=== PATIENT | male | born 1950 | race Caucasian/White ===

== ENCOUNTER → 2017-12-14 | Outpatient (CLI) | payer MEDICARE, BC ==
[2017-12-14 16:34] LABS: ALT 107 U/L (21-72); AST 103 U/L (17-59)
[2017-12-15 03:50] LABS: Hemoglobin A1C 5.5 % (4.0-6.0)
== END ==
LOC: LABPAT 15:14
PROVIDERS: ATTEND Orthopaedic Surgery
DX: Z01.818 Encounter for other preprocedural examination (principal); Z01.812 Encounter for preprocedural laboratory examination; M16.12 Unilateral primary osteoarthritis, left hip; E11.9 Type 2 diabetes mellitus without complications; R74.8 Abnormal levels of other serum enzymes
CPT/HCPCS: 36415; 83036; 84450; 84460; 86850; 86900; 86901; 87070

== ENCOUNTER → 2017-12-19 | Outpatient (CLI) | payer MEDICARE, BC ==
[2017-12-19 13:32] LABS: INR 1.2 (<1.2); Prothrombin Time 11.8 sec (9.0-12.0)
[2017-12-19 14:08] LABS: Basophils % (A) 1 %; Eosinophils # (A) 0.3 k/uL (0-0.7); Eosinophils % (A) 5 %; HCT 45.1 % (39.0-53.0); HGB 15.3 gm/dL (13.0-17.5); Lymphocytes # (A) 1.7 k/uL (1.0-4.8); Lymphocytes % (A) 28 %; MCH 32.5 pg (25.0-35.0); MCV 95.8 fL (80.0-100.0); Mean Platelet Volume 6.9; Monocytes # (A) 0.4 k/uL (0-1.0); Monocytes % (A) 7 %; Neutrophils # (A) 3.6 k/uL (1.3-7.7); Neutrophils % (A) 59 %; Platelet Count 224 k/uL (150-450); RBC 4.71 m/uL (4.30-5.90); RDW 12.6 % (11.5-15.5); WBC 6.1 k/uL (3.8-10.6)
== END | disposition home or self-care (01) ==
LOC: LABPAT 12:40
PROVIDERS: ATTEND Orthopaedic Surgery
DX: Z01.812 Encounter for preprocedural laboratory examination (principal); Z79.01 Long term (current) use of anticoagulants; Z79.899 Other long term (current) drug therapy
CPT/HCPCS: 36415; 80051; 85025; 85610

== ENCOUNTER 2017-12-25 05:42 | Inpatient (IN) | payer MEDICARE, BC ==
[2017-12-13 11:41] VITALS: BMI 32.7
--- NOTE | 2017-12-24 18:38 | HP ---
HISTORY AND PHYSICAL REASON FOR ADMISSION: Surgery scheduled 12/25/17 67-year-old patient seen with progressive left hip pain consistent with symptomatic osteoarthritis. After treatment options were discussed with him, he elected to proceed with left total hip arthroplasty. Consent regarding the procedure was obtained. Medical clearance was provided by Dr. Gilbert Dominguez. PAST MEDICAL HISTORY: Hypertension, oez-vkpifqh-thretfznb diabetes, hyperlipidemia. PAST SURGICAL HISTORY: Lumbar spine decompression. MEDICATIONS ARE: Lisinopril/hydrochlorothiazide, metformin, metoprolol. ALLERGIES: None reported. SOCIAL HISTORY: The patient denies current tobacco use. PHYSICAL EXAMINATION: Evaluation of the left hip there is a limited range of motion with significant pain. Positive hip impingement sign. Straight leg raise is negative. Distal neurovascular exam is intact. RADIOGRAPHS: Radiographs of the left hip revealed moderate/severe osteoarthritic changes. IMPRESSION: 1. Left hip osteoarthritis. 2. Hypertension. 3. Rfo-guvcxfe-smrcplsra diabetes. 4. Hyperlipidemia. PLAN: Direct anterior left total hip arthroplasty. Surgery 12/25/2017. MMODL / IJN: [id number] /
[~2017-12-25 05:42] MED LIST: ceFAZolin IN SWFI 2 GM/20 ML SYRINGE IVP ONE
[2017-12-25] MEDS ORDERED: LIDOCAINE 1% 20 ML VIAL (10MG/ML) FOR IV START INTRADERMA PRN (06:07)
[2017-12-25] MEDS ORDERED: ONDANSETRON 4 MG/2 ML VIAL IVP ONE ×2 (06:07→10:06)
[2017-12-25] MEDS: LACTATED RINGERS 1,000 ML IV SCH ×3 (06:43→22:26)
[2017-12-25] MEDS ORDERED: DEXAMETHASONE SOD PHOS (MDV) 100 MG/10 ML VIAL IVP ONE (06:44)
[2017-12-25 06:54] LABS: Glucose,Whole Blood 124 mg/dL (75-99)
[2017-12-25] MEDS ORDERED: ROPIVACAINE 246.25 MG, EPINEPHrine 0.5 MG, KETOROLAC 30 MG, cloNIDine HCL/PF 80 MCG, WA... MISCELLANE ONE ×5 (07:29)
[2017-12-25] MEDS ORDERED: TRANEXAMIC ACID 1,000 MG in SODIUM CHLORIDE 0.9% 50 ML IVPB ONE (07:42)
[2017-12-25] MEDS ORDERED: ceFAZolin 3,000 MG in SODIUM CHLORIDE 0.9% IRRIGATIO 3,000 ML IRRIGATION ONE (08:16)
[2017-12-25] MEDS: TRANEXAMIC ACID 1,000 MG in SODIUM CHLORIDE 0.9% 50 ML IVPB ONE ×2 (08:16→08:40)
[2017-12-25] MEDS ORDERED: LACTATED RINGERS 1,000 ML IV ONE (08:37)
[2017-12-25] MEDS ORDERED: HYDROcodone/APAP 7.5-325MG 1 EACH TAB PO PRN ×2 (09:17)
[2017-12-25] MEDS ORDERED: ONDANSETRON 4 MG/2 ML VIAL IVP PRN (09:17)
[2017-12-25] MEDS ORDERED: HYDROmorphone 1 MG/ML 1 ML SYRINGE IVP PRN ×3 (09:17)
[2017-12-25] MEDS ORDERED: hydrOXYzine PAMOATE 25 MG CAP PO PRN (09:17)
[2017-12-25] MEDS ORDERED: NALOXONE 0.4 MG/ML 1 ML VIAL IV PRN (09:17)
--- NOTE | 2017-12-25 09:17 | P.OP ---
Date of Procedure: 12/25/17 Preoperative Diagnosis: Left hip osteoarthritis Postoperative Diagnosis: Left hip osteoarthritis Procedure(s) Performed: Direct anterior left total hip arthroplasty Implants: 1. Depuy Corail size 14 standard collar press-fit femoral stem 2. Depuy pinnacle 64 mm press-fit acetabular shell 3. Depuy pinnacle polyethylene acetabular liner 36 mm ID 64 mm OD 4. Biolox delta ceramic femoral head +5 36 mm Anesthesia: RIVERAA, local Surgeon: Gene Mathur Hairspring Inspector #1: Frandy Rodrigues Estimated Blood Loss (ml): 1,500 Pathology: other (Femoral head) Condition: stable Disposition: PACU Indications for Procedure: 67-year-old patient seen with symptomatic left hip osteoarthritis. After having treatment options discussed, he elected to proceed with total hip arthroplasty. Operative Findings: see description of procedure Description of Procedure: The patient was taken to the operative suite. Patient underwent a general anesthetic by the department of anesthesia. Patient was then transferred to the [place] table. Patient was given preoperative IV antibiotics and TXA. Both lower extremities were placed in standard leg spars. The hip was then prepped and draped in the normal sterile orthopedic fashion. A standard anterior incision was made beginning 3 cm lateral and 1 cm distal to the ASIS extending 10 cm. Dissection was then carried down through the subcutaneous soft tissues down to the fascia overlying the tensor fascia ernestina. An incision was now made through the fascia. Careful dissection was taken down exposing the tensor fascia ernestina muscle. A Cobra retractor was now placed along the medial femoral neck and a second one along the lateral femoral neck. The venous circumflex vessels were now identified, cauterized and clipped. We identified the anterior hip capsule. An incision was made through the hip capsule along the lateral border. I performed a partial anterior capsulectomy. Retractors were now placed around the femoral neck itself. A femoral neck cut was now made with a sagittal saw. It was completed with an osteotome at the lateral neck area. The femoral head was now removed without difficulty. The extremity was now rotated to 45 of external rotation. It was locked in position. Residual labrum was now debrided out. Serial reaming was performed of the acetabulum while Quique BUSTILLOS assisted holding an anterior retractor for exposure. Once we reached the appropriate size and a trial was position and fit nicely. The appropriate size was now chosen opened and made available. It was introduced into the acetabulum without difficulty. The C-arm/fluoroscopy was now brought into the operative field. We made sure we had a true AP pelvic view. We now under direct C-arm/fluoroscopy introduced into the acetabular component with appropriate version and inclination. I held the cup in appropriate position well Quique BUSTILLOS used a mallet to seat the acetabular component. I noted the component now to be well seated and stable. Acetabular cup introduce her was removed. The C-arm was pulled back. An appropriate liner was introduced and clicked into position. It was felt to be stable. At this point retractors were removed. The extremity was now placed into 120 external rotation with no traction. The leg was now dropped to the ground and adducted. Appropriate retractors were now positioned along the proximal femur. We also placed our femoral look into position. Additional capsular releasing was performed to gain access to the proximal femur. We now used a box osteotome. A canal finder was now utilized. Serial broaching was now performed with the assistance of Quique BUSTILLOS tapping the broaches down with a mallet while held the broach in appropriate rotation and position. This was done until we reached the appropriate size with good overall rotational stability. Appropriate calcar planing was performed. A trial head/neck was placed into position. The hip was now reduced. The C-arm/fluoroscopy was brought back into the operative field. A spot film was obtained of the nonoperative hip. A spot film was obtained of the trial components. Overlays were performed, we noted good overall alignment and positioning for determining leg length. The C- arm/fluoroscopy was pulled back. Retractors were repositioned and the hip was dislocated. The leg was again taken down to the ground and adducted. Appropriate retractors were repositioned as well as the femoral hook. All trial components were removed. The femoral implant was opened along with the femoral head. The femoral implant was introduced on the appropriate handle into our pre-broached area. I held the component position well Quique BUSTILLOS used a mallet to seat the femoral component. The femoral component was now noted to be well seated and stable.. The femoral head was introduced with good positioning and fixation noted. Retractors were now removed. The hip was now reduced. There appeared be good positioning of the hip confirmed on intraoperative fluoroscopy. Spot films were obtained to document this. A second gram of TXA was given. The deep and superficial soft tissues were infiltrated with local analgesic. Bipolar cautery had been utilized intermittently through the procedure for hemostasis. The wound was irrigated copiously with pulse lavage mechanical irrigation. The fascia was repaired with Vicryl suture. The subcutaneous soft tissues were repaired in layers with Vicryl suture. The skin was approximated with pernio/Dermabond. Sterile dressings were applied. Patient was then awakened, transferred to a bed and taken to recovery in stable condition. Quique BUSTILLOS assisted with the complex procedure.
[2017-12-25] MEDS: HYDROmorphone 0.5 MG/0.5 ML SYRINGE IVP PRN ×2 (09:51→10:13)
--- NOTE | 2017-12-25 10:24 | FL ---
Fluoroscopy HISTORY: Hip replacement 9 seconds fluoroscopy time supplied to the referring clinician. 1 intraoperative C-arm images docume nt the procedure. See dictated report from orthopedic surgery.
--- NOTE | 2017-12-25 10:25 | XR ---
Limited left hip HISTORY: Hip replacement Single intraoperative C-arm image documents the procedure.
[2017-12-25] MEDS ORDERED: INSULIN ASPART 100 UNIT/ML 1 ML 10 ML VIAL SQ ONE (11:54)
[2017-12-25 12:00] LABS: Glucose,Whole Blood 234 mg/dL (75-99)
[2017-12-25] MEDS: ceFAZolin IN SWFI 2 GM/20 ML SYRINGE IVP SCH ×2 (18:03→23:28)
[2017-12-25] MEDS: traMADol 50 MG TAB PO SCH ×2 (18:03→22:24)
[2017-12-25 20:25] LABS: Glucose,Whole Blood 216 mg/dL (75-99)
[2017-12-25] MEDS: metFORMIN 500 MG TAB PO SCH (22:24)
[2017-12-25] MEDS: INSULIN ASPART 100 UNIT/ML 1 ML 10 ML VIAL SQ SCH (22:25)
[2017-12-25] MEDS: SENNOSIDES-DOCUSATE SODIUM 1 EACH TAB PO SCH (22:25)
[2017-12-26] MEDS: LACTATED RINGERS 1,000 ML IV SCH ×2 (05:37→05:39)
[2017-12-26 07:25] LABS: Glucose,Whole Blood 163 mg/dL (75-99)
[2017-12-26] MEDS: INSULIN ASPART 100 UNIT/ML 1 ML 10 ML VIAL SQ SCH ×4 (07:43→22:20)
[2017-12-26] MEDS: traMADol 50 MG TAB PO SCH ×5 (07:53→22:28)
[2017-12-26] MEDS: ENOXAPARIN 40 MG/0.4 ML SYRINGE SQ SCH (07:53)
[2017-12-26] MEDS: METOPROLOL TARTRATE 25 MG TAB PO SCH (07:53)
[2017-12-26] MEDS: MELOXICAM 7.5 MG TAB PO SCH (07:53)
[2017-12-26] MEDS: MULTIVITAMINS, THERA 1 EACH TAB PO SCH (07:54)
[2017-12-26] MEDS: FAMOTIDINE 20 MG TAB PO SCH (07:54)
[2017-12-26] MEDS: metFORMIN 500 MG TAB PO SCH ×2 (07:54→22:20)
[2017-12-26] MEDS: LISINOPRIL-HCTZ 20-12.5 MG 1 EACH TAB PO SCH (07:57)
[2017-12-26 08:02] LABS: Basophils % (A) 0 %; Eosinophils % (A) 0 %; HCT 31.4 % (39.0-53.0); Lymphocytes # (A) 1.3 k/uL (1.0-4.8); Lymphocytes % (A) 11 %; MCH 32.4 pg (25.0-35.0); MCHC 34.1 g/dL (31.0-37.0); MCV 94.9 fL (80.0-100.0); Mean Platelet Volume 6.5; Monocytes # (A) 0.8 k/uL (0-1.0); Monocytes % (A) 7 %; Neutrophils # (A) 9.5 k/uL (1.3-7.7); Neutrophils % (A) 81 %; Platelet Count 172 k/uL (150-450); RDW 12.8 % (11.5-15.5); WBC 11.7 k/uL (3.8-10.6)
[2017-12-26 08:09] LABS: Anion Gap 7 mmol/L; Blood Urea Nitrogen 16 mg/dL (9-20); Calcium 8.4 mg/dL (8.4-10.2); Carbon Dioxide 25 mmol/L (22-30); Chloride 105 mmol/L (98-107); Glucose 142 mg/dL (74-99); HGB 10.7 gm/dL (13.0-17.5); Potassium 4.1 mmol/L (3.5-5.1); Sodium 137 mmol/L (137-145)
[2017-12-26 12:10] LABS: Glucose,Whole Blood 140 mg/dL (75-99)
--- NOTE | 2017-12-26 13:05 | P.CONS ---
History of Present Illness - Reason for Consult Consult date: 12/26/17 medical management Requesting physician: Gene Mathur - Chief Complaint s/p left MITCHELL - History of Present Illness 67-year-old male who underwent an elective left total hip arthroplasty on 12/25/[address] Dominguez was consulted for medical management. The patient is seen postoperatively on the medical floor. The patient states his pain is tolerable. He denies shortness of breath or chest pain. The patient worked with physical therapy this morning. the patient was found to have orthostatic hypotension. Blood pressure supine 123/77. Blood pressure sitting 91/66. Blood pressure standing 66/41. The patient states this used to happen to him in the past but his blood pressure medications were recently decreased by Dr. Dominguez and he has had no episodes of dizziness or lightheadedness at home upon sitting or standing. the patient also is currently having urinary retention. The patient does report this usually happens to him when he has surgery. He required straight cath early this morning. Review of Systems Those systems with pertinent positive or pertinent negative responses have been documented in the HPI Past Medical History Past Medical History: Diabetes Mellitus, Hypertension, Osteoarthritis (OA) Additional Past Medical History / Comment(s): had back surgery 2011 for bone spur-still w/numbness,tingling both legs & drags left foot History of Any Multi-Drug Resistant Organisms: None Reported Past Surgical History: Back Surgery, Orthopedic Surgery Additional Past Surgical History / Comment(s): repair of left elbow fx., nasal surg. Past Anesthesia/Blood Transfusion Reactions: No Reported Reaction Past Psychological History: No Psychological Hx Reported Smoking Status: Never smoker Past Alcohol Use History: Daily Additional Past Alcohol Use History / Comment(s): couple beers daily Past Drug Use History: None Reported - Past Family History Father Family Medical History: Cancer Additional Family Medical History / Comment(s): colon Mother Family Medical History: Cancer Additional Family Medical History / Comment(s): ovarian,breast Medications and Allergies Home Medications Medication Instructions Recorded Confirmed Type Aspirin 81 mg PO DAILY 12/13/17 12/25/17 History Bifidobacterium Infantis [Align] 4 mg PO DAILY 12/13/17 12/25/17 History Lisinopril-Hctz 20-12.5 mg 0.5 tab PO DAILY 12/13/17 12/25/17 History [Zestoretic 20-12.5] Metoprolol Tartrate [Lopressor] 25 mg PO QAM 12/13/17 12/25/17 History metFORMIN HCL [Glucophage] 1,000 mg PO BID 12/13/17 12/25/17 History Allergies Allergy/AdvReac Type Severity Reaction Status Date / Time No Known Allergies Allergy Verified 12/25/17 15:28 Physical Exam Vitals: Vital Signs Temp Pulse Pulse Resp BP BP BP 12/26/17 11:33 12/26/17 11:30 91/66 66/41 12/26/17 07:20 17 12/26/17 07:19 98.3 F 99 17 137/75 12/25/17 23:00 97.6 F 97 16 107/70 12/25/17 19:40 97.8 F 72 16 98/62 12/25/17 16:56 94 107/71 12/25/17 16:34 101 H 107/71 12/25/17 14:30 99 16 110/63 12/25/17 13:30 109 H 16 112/74 12/25/17 13:00 97 16 113/72 BP Pulse Ox 12/26/17 11:33 105/65 12/26/17 11:30 123/77 12/26/17 07:20 12/26/17 07:19 97 12/25/17 23:00 98 12/25/17 19:40 98 12/25/17 16:56 12/25/17 16:34 98 12/25/17 14:30 98 12/25/17 13:30 100 12/25/17 13:00 100 Intake and Output 12/25/17 12/26/17 12/26/17 22:59 06:59 14:59 Intake Total 620 880 462 Output Total 150 915 Balance 470 -35 462 Intake: Intake, IV Titration 80 880 Amount Lactated Ringers 1,000 ml 80 880 @ 80 mls/hr IV .[id number] [facility] Rx#:[id number] Oral 540 462 Output: Urine 150 915 Straight 590 Other: Voiding Method Urinal # Voids 1 Weight 115.666 kg GENERAL: This is a 67-year-old male in no apparent distress at the time of examination. Pleasant and cooperative. HEENT: Head is atraumatic, normocephalic. Pupils are equal, round, and reactive to light. Sclerae anicteric. Conjunctivae are clear. Mucus membranes of the mouth are moist. Neck is supple. RESPIRATORY: Clear to ausculation. No wheezes, rales, or rhonchi. No use of accessory muscles. Patient maintaining oxygen saturation greater than 92%. No chest wall tenderness is noted on palpation or with deep breathing. CARDIOVASCULAR: Regular rate and rhythm. S1 and S2 noted. No JVD noted. No S3 or S4 noted. GASTROINTESTINAL: No distention noted. Abdomen soft and round. Normal active bowel sounds auscultated x 4 quadrants. No pain or tenderness noted upon palpation. INTEGUMENTARY: No cyanosis. No jaundice. No rashes noted. No cellulitis noted. EXTREMITIES: 2+ peripheral pulses. No evidence of peripheral edema. No calf tenderness noted. NEUROLOGIC: Cranial nerves II-XII intact. PSYCHIATRIC: Awake, alert, and oriented X 3. Appropriate affect. Intact judgement and insight. Results CBC & Chem 7: 12/26/17 07:04 12/26/17 07:04 Labs: Abnormal Lab Results - Last 24 Hours (Table) 12/25/17 12/26/17 12/26/17 Range/Units 20:13 07:04 07:04 WBC 11.7 H (3.8-10.6) k/uL RBC 3.30 L (4.30-5.90) m/uL Hgb 10.7 L D (13.0-17.5) gm/dL Hct 31.4 L (39.0-53.0) % Neutrophils # 9.5 H (1.3-7.7) k/uL Glucose 142 H (74-99) mg/dL POC Glucose (mg/dL) 216 H (75-99) mg/dL 12/26/17 12/26/17 Range/Units 07:14 11:58 WBC (3.8-10.6) k/uL RBC (4.30-5.90) m/uL Hgb (13.0-17.5) gm/dL Hct (39.0-53.0) % Neutrophils # (1.3-7.7) k/uL Glucose (74-99) mg/dL POC Glucose (mg/dL) 163 H 140 H (75-99) mg/dL Assessment and Plan Plan: ASSESSMENT: Osteoarthritis, status post left total hip arthroplasty Urinary retention, suspect secondary to anesthesia as patient reports he experiences urinary retention with previous surgeries Orthostatic hypotension Diabetes mellitus, type II History of hypertension PLAN: Continue postoperative surgical care per orthopedics Activity as tolerated Patient is due to void. If no void by 1400, bladder scan. Straight cath for retention greater than 300 mL. Continue current antihypertensives Reinforced importance of getting out of bed slowly and sitting at the bedside for a few minutes before attempting to stand Home meds as appropriate Pain control Thank you for this consultation We will continue to follow with Ankit during his hospitalization Nurse practitioner note has been reviewed by physician. Signing provider agrees with the documented findings, assessment, and plan of care.
[2017-12-26] MEDS ORDERED: SODIUM CHLORIDE 0.9% 500 ML 500 ML IV ONE (13:16)
[2017-12-26] MEDS ORDERED: SODIUM CHLORIDE 0.9% 1,000 ML IV ONE (13:34)
--- NOTE | 2017-12-26 13:45 | P.PN ---
Subjective Progress Note Date: 12/26/17 Principal diagnosis: Status post left total hip arthroplasty Patient seen today resting in his hospital bed, he appears comfortable. He was evaluated on 2 separate occasions. Patient did have some urinary retention, he was straight cathed. He also has had issues with his blood pressure decreasing upon standing and walking. He states the pain is controlled. Objective - Vital Signs Vital signs: Vital Signs Temp 98.3 F 12/26/17 07:19 Pulse 99 12/26/17 07:19 Resp 17 12/26/17 07:20 BP 105/65 12/26/17 11:33 Pulse Ox 97 12/26/17 07:19 Intake & Output 12/25/17 12/26/17 12/26/17 18:59 06:59 18:59 Intake Total 2421 1500 462 Output Total 1650 915 350 Balance 771 585 112 Weight 115.666 kg Intake: IV 2421 Intake, IV Titration 960 Amount Lactated Ringers 1,000 ml 960 @ 80 mls/hr IV .[id number] [facility] Rx#:[id number] Oral 540 462 Output: Urine 150 915 350 Straight 590 350 Estimated Blood Loss 1500 Other: Voiding Method Urinal # Voids 1 - Exam Left lower extremity: Incision is clean, dry, and intact. The prineo tape is in good condition. There is minimal soft tissue swelling and ecchymosis surrounding the medial and lateral aspects of the incision. Calf is soft, no tenderness with palpation. Plantar flexion, dorsiflexion, EHL, FHL are intact. Sensory exam to light touch throughout the extremity is intact, dorsal pedis pulses 2+. - Labs CBC & Chem 7: 12/26/17 07:04 12/26/17 07:04 Labs: Abnormal Lab Results - Last 24 Hours (Table) 12/25/17 12/26/17 12/26/17 Range/Units 20:13 07:04 07:04 WBC 11.7 H (3.8-10.6) k/uL RBC 3.30 L (4.30-5.90) m/uL Hgb 10.7 L D (13.0-17.5) gm/dL Hct 31.4 L (39.0-53.0) % Neutrophils # 9.5 H (1.3-7.7) k/uL Glucose 142 H (74-99) mg/dL POC Glucose (mg/dL) 216 H (75-99) mg/dL 12/26/17 12/26/17 Range/Units 07:14 11:58 WBC (3.8-10.6) k/uL RBC (4.30-5.90) m/uL Hgb (13.0-17.5) gm/dL Hct (39.0-53.0) % Neutrophils # (1.3-7.7) k/uL Glucose (74-99) mg/dL POC Glucose (mg/dL) 163 H 140 H (75-99) mg/dL Assessment and Plan Plan: Assessment: 1. Postop day 1 status post left total hip arthroplasty 2. Urinary retention 3. Hypotension Plan: Pain control, continue oral medication GI and DVT prophylaxis, continue current medication Daily dressing changes Encourage incentive spirometer Continue work with physical therapy I did order a fluid bolus, 1000 mL Further recommendations following Time with Patient: Less than 30
[2017-12-26] MEDS ORDERED: TAMSULOSIN 0.4 MG CAP.ER.24H PO STA (18:02)
[2017-12-26 18:14] LABS: Glucose,Whole Blood 132 mg/dL (75-99)
[2017-12-26 19:58] LABS: Hemoglobin A1C 5.7 % (4.0-6.0)
[2017-12-26 20:25] LABS: Glucose,Whole Blood 179 mg/dL (75-99)
[2017-12-26] MEDS: SENNOSIDES-DOCUSATE SODIUM 1 EACH TAB PO SCH (22:21)
[2017-12-27] MEDS: LACTATED RINGERS 1,000 ML IV SCH ×2 (01:24→13:19)
[2017-12-27 07:09] LABS: Glucose,Whole Blood 149 mg/dL (75-99)
[2017-12-27] MEDS: INSULIN ASPART 100 UNIT/ML 1 ML 10 ML VIAL SQ SCH ×4 (08:24→21:38)
[2017-12-27] MEDS: TAMSULOSIN 0.4 MG CAP.ER.24H PO SCH (08:25)
[2017-12-27] MEDS: FAMOTIDINE 20 MG TAB PO SCH (08:25)
[2017-12-27] MEDS: traMADol 50 MG TAB PO SCH ×4 (08:25→21:52)
[2017-12-27] MEDS: ENOXAPARIN 40 MG/0.4 ML SYRINGE SQ SCH (08:25)
[2017-12-27] MEDS: MELOXICAM 7.5 MG TAB PO SCH (08:26)
[2017-12-27] MEDS: metFORMIN 500 MG TAB PO SCH ×2 (08:26→21:37)
[2017-12-27] MEDS: LISINOPRIL-HCTZ 20-12.5 MG 1 EACH TAB PO SCH (10:13)
[2017-12-27] MEDS: METOPROLOL TARTRATE 25 MG TAB PO SCH (10:13)
[2017-12-27 10:33] LABS: Basophils % (A) 0 %; Eosinophils # (A) 0.1 k/uL (0-0.7); Eosinophils % (A) 2 %; HCT 26.8 % (39.0-53.0); Lymphocytes # (A) 1.1 k/uL (1.0-4.8); Lymphocytes % (A) 17 %; MCH 32.7 pg (25.0-35.0); MCHC 33.6 g/dL (31.0-37.0); MCV 97.5 fL (80.0-100.0); Mean Platelet Volume 6.8; Monocytes # (A) 0.5 k/uL (0-1.0); Monocytes % (A) 7 %; Neutrophils # (A) 4.7 k/uL (1.3-7.7); Neutrophils % (A) 73 %; Platelet Count 134 k/uL (150-450); RBC 2.75 m/uL (4.30-5.90); RDW 12.6 % (11.5-15.5); WBC 6.5 k/uL (3.8-10.6)
[2017-12-27 11:23] LABS: Glucose,Whole Blood 192 mg/dL (75-99)
--- NOTE | 2017-12-27 11:50 | P.PN ---
Subjective Progress Note Date: 12/27/17 Principal diagnosis: Status post left total hip arthroplasty Patient seen today resting in his hospital bed, he appears comfortable. Patient continues to have orthostatic hypotension, he also had a catheter placed with inability to urinate. Internal medicine has started him on Flomax. His pain is controlled with regards to the hip. Objective - Vital Signs Vital signs: Vital Signs Temp 98.4 F 12/27/17 07:00 Pulse 104 H 12/27/17 07:00 Resp 18 12/27/17 07:50 BP 113/71 12/27/17 07:00 Pulse Ox 94 L 12/27/17 07:00 Intake & Output 12/26/17 12/27/17 12/27/17 18:59 06:59 18:59 Intake Total 462 240 Output Total 1250 1050 Balance -788 -810 Intake: Oral 462 240 Output: Urine 1250 1050 Straight 1250 Other: Voiding Method Indwelling Catheter Indwelling Catheter - Exam Left lower extremity: Incision is clean, dry, and intact. The prineo tape is in good condition. There is minimal soft tissue swelling and ecchymosis surrounding the medial and lateral aspects of the incision. Calf is soft, no tenderness with palpation. Plantar flexion, dorsiflexion, EHL, FHL are intact. Sensory exam to light touch throughout the extremity is intact, dorsal pedis pulses 2+. - Labs CBC & Chem 7: 12/27/17 09:41 12/26/17 07:04 Labs: Abnormal Lab Results - Last 24 Hours (Table) 12/26/17 12/26/17 12/26/17 Range/Units 11:58 18:03 20:14 RBC (4.30-5.90) m/uL Hgb (13.0-17.5) gm/dL Hct (39.0-53.0) % Plt Count (150-450) k/uL POC Glucose (mg/dL) 140 H 132 H 179 H (75-99) mg/dL 12/27/17 12/27/17 12/27/17 Range/Units 06:56 09:41 11:21 RBC 2.75 L (4.30-5.90) m/uL Hgb 9.0 L D (13.0-17.5) gm/dL Hct 26.8 L (39.0-53.0) % Plt Count 134 L (150-450) k/uL POC Glucose (mg/dL) 149 H 192 H (75-99) mg/dL Assessment and Plan Plan: Assessment: 1. Postop day #2 status post left total hip arthroplasty 2. Urinary retention 3. Orthostatic hypotension Plan: Pain control, continue oral medication GI and DVT prophylaxis, continue current medication Daily dressing changes Encourage incentive spirometer Continue work with physical therapy Further recommendations following Time with Patient: Less than 30
[2017-12-27 11:57] LABS: Amorphous Sediment,Urine Rare /hpf; Appearance,Urine Turbid (Clear); Bacteria,Urine Rare /hpf; Bilirubin,Urine Negative (Negative); Blood,Urine Moderate (Negative); Color,Urine Yellow; Glucose,Urine (UA) Negative (Negative); Ketones,Urine Negative (Negative); Leukocyte Esterase,Urine Large (Negative); Mucus,Urine Occasional /hpf; Nitrite,Urine Negative (Negative); PH, Urine 5.5 (5.0-8.0); Protein,Urine Trace (Negative); RBC,Urine 42 /hpf (0-5); Specific Gravity,Urine 1.018 (1.001-1.035); WBC,Urine >182 /hpf (0-5)
[2017-12-27] MEDS: MULTIVITAMINS, THERA 1 EACH TAB PO SCH (13:18)
[2017-12-27 15:50] VITALS: RESP 16
--- NOTE | 2017-12-27 15:50 | PN ---
PROGRESS NOTE DATE OF SERVICE: 12/27/2017 This patient is a 76-year-old pleasant white male seen in consultation postoperatively after left total hip arthroplasty, anterior approach. He is currently having problems with urination and urinary obstruction. A catheter has been replaced. He has also had some problems with orthostatic hypotension, which has seemed to resolve some today. PHYSICAL EXAMINATION: The patient is alert and oriented x3, in no acute distress. He is answering questions appropriately. NECK: Supple. No JVD. HEART: Regular rate and rhythm. LUNGS: Clear to auscultation. ABDOMEN: Soft, nontender. No rebound, rigidity or guarding. EXTREMITIES: Left hip with a bandage with incision intact. NEUROLOGICAL: Cranial nerves 2 through 12 are grossly intact. There is a Garcia catheter in place which appears to be a traumatic catheterization. The patient was placed on one dose of Flomax so far. Will consider pulling catheter tomorrow. IMPRESSIONS: 1. Postoperative day number 2, total left hip arthroplasty, anterior approach. 2. Orthostatic hypotension. 3. Anemia secondary to blood loss from surgery. 4. Urinary obstruction, started on Flomax. PLAN: To attempt to pull catheter tomorrow. Will do a urine culture and C&S, continue to encourage fluids. Continue to monitor blood pressure. Continue to monitor hemoglobin. MMODL / IJN: [id number] /
[2017-12-27 17:12] LABS: Glucose,Whole Blood 121 mg/dL (75-99)
[2017-12-27] MEDS ORDERED: LEVOFLOXACIN 500MG-D5W PMX 500 MG in DEXTROSE/WATER 1 100ML.BAG IVPB STA (17:35)
[2017-12-27 20:27] LABS: Glucose,Whole Blood 173 mg/dL (75-99)
[2017-12-27] MEDS: SENNOSIDES-DOCUSATE SODIUM 1 EACH TAB PO SCH (21:19)
[2017-12-28] MEDS: LACTATED RINGERS 1,000 ML IV SCH (01:05)
[2017-12-28 07:02] LABS: Glucose,Whole Blood 124 mg/dL (75-99)
[2017-12-28 07:49] LABS: Basophils % (A) 0 %; Eosinophils # (A) 0.2 k/uL (0-0.7); Eosinophils % (A) 4 %; HCT 27.2 % (39.0-53.0); HGB 9.4 gm/dL (13.0-17.5); Lymphocytes # (A) 1.3 k/uL (1.0-4.8); Lymphocytes % (A) 22 %; MCH 33.7 pg (25.0-35.0); MCHC 34.6 g/dL (31.0-37.0); MCV 97.4 fL (80.0-100.0); Mean Platelet Volume 6.9; Monocytes # (A) 0.5 k/uL (0-1.0); Monocytes % (A) 8 %; Neutrophils # (A) 3.9 k/uL (1.3-7.7); Neutrophils % (A) 65 %; Platelet Count 136 k/uL (150-450); RDW 12.7 % (11.5-15.5); WBC 6.1 k/uL (3.8-10.6)
[2017-12-28 08:11] LABS: Anion Gap 4 mmol/L; Blood Urea Nitrogen 11 mg/dL (9-20); Calcium 7.9 mg/dL (8.4-10.2); Carbon Dioxide 28 mmol/L (22-30); Chloride 104 mmol/L (98-107); Glucose 122 mg/dL (74-99); Potassium 3.7 mmol/L (3.5-5.1); Sodium 136 mmol/L (137-145)
[2017-12-28] MEDS ORDERED: LEVOFLOXACIN 500 MG TAB PO SCH (09:00)
[2017-12-28] MEDS: INSULIN ASPART 100 UNIT/ML 1 ML 10 ML VIAL SQ SCH ×2 (09:45→13:24)
[2017-12-28] MEDS: ENOXAPARIN 40 MG/0.4 ML SYRINGE SQ SCH (09:46)
[2017-12-28] MEDS: FAMOTIDINE 20 MG TAB PO SCH (09:47)
[2017-12-28] MEDS: metFORMIN 500 MG TAB PO SCH (09:47)
[2017-12-28] MEDS: traMADol 50 MG TAB PO SCH ×2 (09:48→16:42)
[2017-12-28] MEDS: MELOXICAM 7.5 MG TAB PO SCH (09:49)
[2017-12-28] MEDS: TAMSULOSIN 0.4 MG CAP.ER.24H PO SCH (09:52)
[2017-12-28] MEDS: METOPROLOL TARTRATE 25 MG TAB PO SCH (11:07)
[2017-12-28] MEDS: LISINOPRIL-HCTZ 20-12.5 MG 1 EACH TAB PO SCH (11:07)
[2017-12-28 11:22] LABS: Glucose,Whole Blood 181 mg/dL (75-99)
--- NOTE | 2017-12-28 11:36 | CDI ---
Documentation Clarification Form Date: 12/28/17 CDS: Ailyn Jay RN Admit Date: 11/20/17 Patient Name: Ankit Arguelles ATTENTION: The Clinical Documentation Specialists (CDI) and [facility] Coding Staff appreciate your assistance in clarifying documentation. Please respond to the clarification below the line at the bottom and electronically sign. The CDI & [facility] Coding staff will review the response and follow-up if needed. Please note: Queries are made part of the Legal Health Record. If you have any questions, please contact the author of this message via ITS. Dr. Gene Mathur, DO, Urinary Retention and Orthostatic hypotension are both documented in the Pn and thoughout the chart post operatively. Patients Admitting Diagnosis: left hip osteoarthritis Post-Operative Diagnosis: total left hip arthroplasty Procedure performed: total left hip arthroplasty History/Risk Factors:HTN, DM, hyperlipidemia Clinical Indicators: Treatment: Garcia Catheter, Flomax, B/P meds. held and adjusted Consults: Medical Dr. Dominguez In order to accurately reflect this patients severity of illness, please clarify if the post-operative diagnosis is: Urinary retention: An expected post-procedural or post-surgical condition; Integral to the procedure; Inherent to the procedure; An unexpected post-procedural or post-surgical condition related to surgical care; Other, please specify Unable to determine Orthostatic Hypotension: An expected post-procedural or post-surgical condition; Integral to the procedure; Inherent to the procedure; An unexpected post-procedural or post-surgical condition related to surgical care; Other, please specify Unable to determine urinary retention and orthostatic hypotension and this patient were both unexpected postsurgical conditions MTDD
--- NOTE | 2017-12-28 12:31 | P.PN ---
Subjective Progress Note Date: 12/28/17 12/26/2017 67-year-old male who underwent an elective left total hip arthroplasty on 12/25/[address] Dominguez was consulted for medical management. The patient is seen postoperatively on the medical floor. The patient states his pain is tolerable. He denies shortness of breath or chest pain. The patient worked with physical therapy this morning. the patient was found to have orthostatic hypotension. Blood pressure supine 123/77. Blood pressure sitting 91/66. Blood pressure standing 66/41. The patient states this used to happen to him in the past but his blood pressure medications were recently decreased by Dr. Dominguez and he has had no episodes of dizziness or lightheadedness at home upon sitting or standing. the patient also is currently having urinary retention. The patient does report this usually happens to him when he has surgery. He required straight cath early this morning. 12/27/2017: Note per Dr. Dominguez 12/28/2017 Patient seen and examined at the bedside. Patient is awake and alert. Patient states his pain is tolerable at this time. The patient was having difficulty with orthostatic hypotension which seems to have resolved. The patient continued to have urinary retention and required indwelling urinary catheter placement. He was started on Flomax. He denies shortness of breath. Denies chest pain or pressure. Objective - Vital Signs Vital signs: Vital Signs Temp 98.4 F 12/28/17 01:19 Pulse 95 12/28/17 07:20 Resp 16 12/28/17 01:19 BP 137/81 12/28/17 07:20 Pulse Ox 96 12/28/17 07:20 Intake & Output 12/27/17 12/28/17 12/28/17 18:59 06:59 18:59 Intake Total 160 125 Output Total 1725 1000 Balance 160 -1725 -875 Intake: Intake, IV Titration 160 Amount Lactated Ringers 1,000 ml 160 @ 80 mls/hr IV .[id number] [facility] Rx#:[id number] Oral 125 Output: Urine 1725 1000 Straight 1000 Other: Voiding Method Indwelling Catheter Indwelling Catheter # Voids 1 - Exam GENERAL: This is a 67-year-old male in no apparent distress at the time of examination. Pleasant and cooperative. HEENT: Head is atraumatic, normocephalic. Pupils are equal, round, and reactive to light. Sclerae anicteric. Conjunctivae are clear. Mucus membranes of the mouth are moist. Neck is supple. RESPIRATORY: Clear to auscultation. No wheezes, rales, or rhonchi. No use of accessory muscles. Patient maintaining oxygen saturation greater than 92%. No chest wall tenderness is noted on palpation or with deep breathing. CARDIOVASCULAR: Regular rate and rhythm. S1 and S2 noted. No JVD noted. No S3 or S4 noted. GASTROINTESTINAL: No distention noted. Abdomen soft and round. Normal active bowel sounds auscultated x 4 quadrants. No pain or tenderness noted upon palpation. INTEGUMENTARY: No cyanosis. No jaundice. No rashes noted. No cellulitis noted. EXTREMITIES: 2+ peripheral pulses. No evidence of peripheral edema. No calf tenderness noted. NEUROLOGIC: Cranial nerves II-XII intact. PSYCHIATRIC: Awake, alert, and oriented X 3. Appropriate affect. Intact judgement and insight. - Labs CBC & Chem 7: 12/28/17 07:25 12/28/17 07:25 Labs: Abnormal Lab Results - Last 24 Hours (Table) 12/27/17 12/27/17 12/28/17 Range/Units 17:10 20:16 06:51 RBC (4.30-5.90) m/uL Hgb (13.0-17.5) gm/dL Hct (39.0-53.0) % Plt Count (150-450) k/uL Sodium (137-145) mmol/L Creatinine (0.66-1.25) mg/dL Glucose (74-99) mg/dL POC Glucose (mg/dL) 121 H 173 H 124 H (75-99) mg/dL Calcium (8.4-10.2) mg/dL 12/28/17 12/28/17 12/28/17 Range/Units 07:25 07:25 11:11 RBC 2.80 L (4.30-5.90) m/uL Hgb 9.4 L (13.0-17.5) gm/dL Hct 27.2 L (39.0-53.0) % Plt Count 136 L (150-450) k/uL Sodium 136 L (137-145) mmol/L Creatinine 0.57 L (0.66-1.25) mg/dL Glucose 122 H (74-99) mg/dL POC Glucose (mg/dL) 181 H (75-99) mg/dL Calcium 7.9 L (8.4-10.2) mg/dL Microbiology - Last 24 Hours (Table) 12/27/17 11:39 Urine Culture - Preliminary Urine,Catheterized Assessment and Plan Plan: ASSESSMENT: Osteoarthritis, status post left total hip arthroplasty Urinary retention Urinary tract infection Orthostatic hypotension Diabetes mellitus, type II History of hypertension PLAN: Continue postoperative surgical care per orthopedics Activity as tolerated Continue Flomax Discontinue urinary catheter this morning Continue current antihypertensives Reinforced importance of getting out of bed slowly and sitting at the bedside for a few minutes before attempting to stand Home meds as appropriate Pain control Once urinary catheter was discontinued, if patient is able to void and post void residual bladder scan is within normal limits the patient may be discharged home. If the patient continues to have urinary retention an indwelling urinary catheter will be reinserted before discharge and the patient may follow up outpatient with urology in 1 week. Nurse practitioner note has been reviewed by physician. Signing provider agrees with the documented findings, assessment, and plan of care.
[2017-12-28] MEDS: MULTIVITAMINS, THERA 1 EACH TAB PO SCH (13:25)
--- NOTE | 2017-12-28 13:38 | P.PN ---
Subjective Progress Note Date: 12/28/17 Principal diagnosis: Status post left total hip arthroplasty Patient seen today resting in his hospital bed, he appears comfortable. Catheters been removed, he's been able to urinate. Patient's blood pressure is also improved. His pain is controlled with regards to the hip. Objective - Vital Signs Vital signs: Vital Signs Temp 98.4 F 12/28/17 01:19 Pulse 95 12/28/17 07:20 Resp 16 12/28/17 01:19 BP 137/81 12/28/17 07:20 Pulse Ox 96 12/28/17 07:20 Intake & Output 12/27/17 12/28/17 12/28/17 18:59 06:59 18:59 Intake Total 160 125 Output Total 1725 1000 Balance 160 -1725 -875 Intake: Intake, IV Titration 160 Amount Lactated Ringers 1,000 ml 160 @ 80 mls/hr IV .[id number] [facility] Rx#:[id number] Oral 125 Output: Urine 1725 1000 Straight 1000 Other: Voiding Method Indwelling Catheter Indwelling Catheter # Voids 1 - Exam Left lower extremity: Incision is clean, dry, and intact. The prineo tape is in good condition. There is minimal soft tissue swelling and ecchymosis surrounding the medial and lateral aspects of the incision. Calf is soft, no tenderness with palpation. Plantar flexion, dorsiflexion, EHL, FHL are intact. Sensory exam to light touch throughout the extremity is intact, dorsal pedis pulses 2+. - Labs CBC & Chem 7: 12/28/17 07:25 12/28/17 07:25 Labs: Abnormal Lab Results - Last 24 Hours (Table) 12/27/17 12/27/17 12/28/17 Range/Units 17:10 20:16 06:51 RBC (4.30-5.90) m/uL Hgb (13.0-17.5) gm/dL Hct (39.0-53.0) % Plt Count (150-450) k/uL Sodium (137-145) mmol/L Creatinine (0.66-1.25) mg/dL Glucose (74-99) mg/dL POC Glucose (mg/dL) 121 H 173 H 124 H (75-99) mg/dL Calcium (8.4-10.2) mg/dL 12/28/17 12/28/17 12/28/17 Range/Units 07:25 07:25 11:11 RBC 2.80 L (4.30-5.90) m/uL Hgb 9.4 L (13.0-17.5) gm/dL Hct 27.2 L (39.0-53.0) % Plt Count 136 L (150-450) k/uL Sodium 136 L (137-145) mmol/L Creatinine 0.57 L (0.66-1.25) mg/dL Glucose 122 H (74-99) mg/dL POC Glucose (mg/dL) 181 H (75-99) mg/dL Calcium 7.9 L (8.4-10.2) mg/dL Microbiology - Last 24 Hours (Table) 12/27/17 11:39 Urine Culture - Preliminary Urine,Catheterized Assessment and Plan Plan: Assessment: 1. Postop day #3 status post left total hip arthroplasty 2. Urinary retention 3. Orthostatic hypotension Plan: Pain control, continue oral medication GI and DVT prophylaxis, continue current medication Daily dressing changes Encourage incentive spirometer Continue work with physical therapy Discharge planning: Patient will be discharged home today Time with Patient: Less than 30
--- NOTE | 2017-12-28 13:39 | P.DS ---
Providers Date of admission: 12/25/17 05:42 Expected date of discharge: 12/28/17 Attending physician: Gene Mathur Consults: 12/25/17 09:17 Consult Physician Routine Consulting Provider: Gilbert Dominguez Reason/Comments: Medical management Do you want consulting provider notified?: Yes Primary care physician: Gilbert Dominguez [facility] Course: Date of admission: 12/25/2017 Date of discharge: 12/28/2017 Admission diagnosis: Status post left total hip arthroplasty Discharge diagnosis: Same Attending physician: Dr. Mathur Surgical procedures: Left total hip arthroplasty Brief history: Patient is a 67-year-old female with a history of progressive primary left osteoarthritis. At this point patient has failed conservative treatment measures and has opted to proceed with a elective left total hip arthroplasty. Hospital course: Details of patient's surgery can be found in operative report. Patient tolerated the procedure well and was subsequently transported to orthopedic floor. Patient's orthopeidc and medical care was provided daily. Patient had daily laboratory tests performed for evaluation of overall blood counts. Patient had daily physical therapy to include strengthening range of motion as well as education with walker ambulation. Patient was treated with Lovenox for their postoperative DVT prophylaxis during their inpatient stay. Patient was noted to have a relatively uneventful postoperative course. Patient reported satisfactory pain control with oral pain medications by postoperative day 0. Patient showed satisfactory progress with physical therapy. Patient moved steadily through the program and had no difficulty meeting the goals by postoperative day 3. Given patient's otherwise satisfactory course and having met physical therapy goals, plan is to discharge patient home on postoperative day 3. Discharge condition/disposition: Patient will be discharged home in stable condition. Discharge medications: Instructions are given on resumption of patient's normal daily medications per primary care recommendation, in addition patient will be prescribed [place] 7.5 mg/325 mg, tramadol 50 mg, aspirin 81 mg, Flomax 0.4 mg, Levaquin 500 mg. Discharge instructions: 1. Wound care and infection precautions, keep incision dry and covered while showering, no lotions, creams, moisturizers. No soaking, tubs, pools, hottubs. Do not scrub over the incision. 2. Weight-bear as tolerated with walker / cane until follow-up. 3. Ice and elevate when necessary. Do not exceed 20 minutes per hour with ice pack. 4. Utilize compression sleeve until seen at first follow up appointment. 5. Visiting nursing care. 6. Home physical therapy. 7. Pain meds and anticoagulants per prescription. 8. Pain medication has potential to cause constipation. Increase oral fluid and fiber intake. Contact primary care provider if you have not had a bowel movement within 48 hours after discharge 9. No anti-inflammatory medication until discussed at first post operative visit, this including Motrin, Aleve, Mobic, Diclofenac. 10. Follow up in office at 2 weeks postop with Quique Rodrigues PA-C 11. Follow up with your primary care doctor 7-10 days after discharge. 12. Contact [facility] with any questions, . Procedures: Left total hip arthroplasty Patient Condition at Discharge: Good Plan - Discharge Summary Discharge Rx Participant: Yes New Discharge Prescriptions: New Levofloxacin [Levaquin] 500 mg PO Q24HR #10 tab Tamsulosin [Flomax] 0.4 mg PO PC-BRKFST #30 cap Aspirin [Adult Low Dose Aspirin EC] 81 mg PO BID #60 tablet. HYDROcodone/APAP 7.5-325MG [[place] 7.5] 1 - 2 each PO Q6HR PRN #40 tab PRN Reason: Pain traMADol HCl [Ultram] 50 mg PO Q6H PRN #28 tab PRN Reason: Pain Continue metFORMIN HCL [Glucophage] 1,000 mg PO BID Metoprolol Tartrate [Lopressor] 25 mg PO QAM Lisinopril-Hctz 20-12.5 mg [Zestoretic 20-12.5] 0.5 tab PO DAILY Bifidobacterium Infantis [Align] 4 mg PO DAILY Discontinued Aspirin 81 mg PO DAILY Discharge Medication List Bifidobacterium Infantis [Align] 4 mg PO DAILY 12/13/17 [History] Lisinopril-Hctz 20-12.5 mg [Zestoretic 20-12.5] 0.5 tab PO DAILY 12/13/17 [ History] Metoprolol Tartrate [Lopressor] 25 mg PO QAM 12/13/17 [History] metFORMIN HCL [Glucophage] 1,000 mg PO BID 12/13/17 [History] Aspirin [Adult Low Dose Aspirin EC] 81 mg PO BID #60 tablet. 12/28/17 [Rx] HYDROcodone/APAP 7.5-325MG [[place] 7.5] 1 - 2 each PO Q6HR PRN #40 tab 12/28/17 [ Rx] Levofloxacin [Levaquin] 500 mg PO Q24HR #10 tab 12/28/17 [Rx] Tamsulosin [Flomax] 0.4 mg PO PC-BRKFST #30 cap 12/28/17 [Rx] traMADol HCl [Ultram] 50 mg PO Q6H PRN #28 tab 12/28/17 [Rx] Follow up Appointment(s)/Referral(s): Frandy Rodrigues PAC [PHYSICIAN [employer]ARN[employer]OURCE TE[employer]ER] - 01/10/18 2:50 pm Patient Instructions/Handouts: Total Hip Replacement (DC) Activity/Diet/Wound Care/Special Instructions: Orthopedic Discharge Instructions: 1. Wound care and infection precautions, keep incision dry and covered while showering, no lotions, creams, moisturizers. No soaking, pools, hot tubs. Do not scrub over incision. 2. Weight-bear as tolerated with walker / cane until follow-up. 3. Ice and elevate when necessary. Do not exceed 20 minutes per hour with ice pack. 4. Utilize compression sleeve until seen at first follow up appointment. 5. Pain meds and anticoagulants per prescription. 6. Pain medication has potential to cause constipation. Increase oral fluid and fiber intake. Contact primary care provider if you have not had a bowel movement within 48 hours after discharge. 7. No anti-inflammatory medication until discussed at first post operative visit, this including Motrin, Aleve, Mobic, Diclofenac. 8. Follow up in office at 2 weeks postop with Quique Rodrigues PA-C 9. Follow up with your primary care doctor 7-10 days after discharge. 10. Contact [facility] with any questions, 11. [facility] - [phone] - will deliver to bedside before discharge. Discharge Disposition: HOME WITH HOME HEALTH SERVICES
[2017-12-28 14:52] VITALS: BP 134/79; PULSE 97; TEMP 98.5
== END 2017-12-28 17:15 | disposition home or self-care (01) | DRG 470 ==
LOC: 2ORMAIN 05:42 → 4SSUR 14:56
PROVIDERS: ADMIT Orthopaedic Surgery; ATTEND Orthopaedic Surgery
PROC: 0SRB04A Replacement of Left Hip Joint with Ceramic on Polyethylene Synthetic Substitute, Uncemented, Open Approach (ICD-10-PCS; principal; 2017-12-25 07:30)
DX: M16.12 Unilateral primary osteoarthritis, left hip (principal); D62 Acute posthemorrhagic anemia; N39.0 Urinary tract infection, site not specified; E11.9 Type 2 diabetes mellitus without complications; E78.5 Hyperlipidemia, unspecified; I10 Essential (primary) hypertension; I95.1 Orthostatic hypotension; N13.9 Obstructive and reflux uropathy, unspecified; Z79.82 Long term (current) use of aspirin; Z79.84 Long term (current) use of oral hypoglycemic drugs; Z79.899 Other long term (current) drug therapy
CPT/HCPCS: 73501; 80048; 81001; 83036; 85025; 86850; 86900; 86901; 87086; 88300